=== PATIENT | female | born 1985 | race Caucasian/White ===

== ENCOUNTER 2016-11-07 11:58 | Emergency (ER) | payer BC ==
[2016-11-07 12:16] VITALS: BP 120/68
--- NOTE | 2016-11-07 12:40 | UC ---
Complaint Female HPI - HPI Summary HPI Summary: Urinary frequency, burning, low abdominal pressure since last night. No hx of UTIs, pt is 6 weeks . - History Of Current Complaint Chief Complaint: UCGU Stated Complaint: BURNING URINATION Time Seen by Provider: 11/07/16 12:22 Hx Obtained From: Patient Hx Last Menstrual Period: 6 weeks ago ?: Yes Onset/Duration: Gradual Onset, Lasting Hours Timing: Constant Severity Initially: Moderate Severity Currently: Mild Character: Burning, Cramping Aggravating Factor(s): Urination Related Hx: - 0, Para - 1 - Allergies/Home Medications Allergies/Adverse Reactions: Allergies Allergy/AdvReac Type Severity Reaction Status Date / Time No Known Allergies Allergy Verified 11/07/16 12:10 Home Medications: Home Medications Budesonide Flexhaler 90 (NF) [Pulmicort Flexhaler 90 mcg/act (NF)] 2 puff INH BID 11/07/16 [History Confirmed 11/07/16] PMH/Surg Hx/FS Hx/Imm Hx Endocrine History Of: Reports: Thyroid Disease - Hypothyroidism Respiratory History Of: Reports: Asthma - Surgical History Surgical History: None - Family History Known Family History: Positive: Hypertension - Social History Occupation: Employed Full-time Lives: With Family Alcohol Use: None Substance Use Type: None Smoking Status (MU): Never Smoked Tobacco - Immunization History Most Recent Influenza Vaccination: Not the season Review of Systems Constitutional: Negative Skin: Negative Eyes: Negative ENT: Negative Respiratory: Negative Cardiovascular: Negative Gastrointestinal: Negative Genitourinary: Dysuria, Frequency, Urgency Motor: Negative Neurovascular: Negative Musculoskeletal: Negative Neurological: Negative Psychological: Negative All Other Systems Reviewed And Are Negative: Yes Physical Exam Triage Information Reviewed: Yes Appearance: Well-Appearing, No Pain Distress, Well-Nourished Vital Signs: Initial Vital Signs Temp 98.5 F 11/07/16 12:13 Pulse 90 11/07/16 12:13 Resp 16 11/07/16 12:13 BP 120/68 11/07/16 12:13 Pulse Ox 99 11/07/16 12:13 Vital Signs Reviewed: Yes Eye Exam: Normal Eyes: Positive: Conjunctiva Clear ENT Exam: Normal ENT: Positive: Normal ENT inspection, Hearing grossly normal, Pharynx normal, TMs normal Dental Exam: Normal Neck exam: Normal Neck: Positive: Supple, Nontender, No Lymphadenopathy Respiratory Exam: Normal Respiratory: Positive: Chest non-tender, Lungs clear, Normal breath sounds, No respiratory distress, No accessory muscle use Cardiovascular Exam: Normal Cardiovascular: Positive: RRR, No Murmur Abdomen Description: Negative: CVA Tenderness (R), CVA Tenderness (L) Musculoskeletal Exam: Normal Neurological Exam: Normal Psychological Exam: Normal Skin Exam: Normal Complaint Female Dx - Course Course Of Treatment: Advised pt that thyroid needs can go up in early and she will need closer management of her levels; pt said she will call her PCP first thing tomorrow. - Differential Dx/Diagnosis Provider Diagnoses: UTI Discharge - Discharge Plan Condition: Stable Disposition: HOME Prescriptions: Cephalexin CAP* [Keflex CAP*] 500 mg PO TID #21 cap Patient Education Materials: Urinary Tract Infection in (ED) Referrals: Marion Lin NP [Primary Care Provider] - If Needed Additional Instructions: Push fluids and follow up with your provider as scheduled.
== END 2016-11-07 12:39 | disposition home or self-care (01) ==
LOC: UCEAST 11:58
DX: O23.41 Unspecified infection of urinary tract in pregnancy, first trimester (principal); Z3A.01 Less than 8 weeks gestation of pregnancy; E03.9 Hypothyroidism, unspecified
CPT/HCPCS: 81002; 87086; 99212; G0463

== ENCOUNTER 2017-07-07 07:54 | Inpatient (IN) | payer BC ==
[2017-07-07] MEDS ORDERED: Dinoprostone* 10 MG VAG.SUPP VAGINAL ONE ×2 (08:08→20:00)
[2017-07-07] MEDS ORDERED: Nalbuphine* 20 MG/ML 1 ML VIAL IM PRN (21:51)
[2017-07-07] MEDS ORDERED: Promethazine INJ(RESTRICTED)* 25 MG/ML 1 ML VIAL IM PRN (21:51)
[2017-07-08] MEDS: Levothyroxine TAB* 25 MCG TAB PO SCH (06:34)
[2017-07-08] MEDS ORDERED: Calcium Carbonate CHEW TAB* 500 MG (TUMS) PO ONE (08:13)
[2017-07-08] MEDS ORDERED: Calcium Carbonate CHEW TAB* 500 MG (TUMS) ONE (08:21)
[2017-07-08] MEDS ORDERED: Misoprostol TAB* 100 MCG VAGINAL ONE ×2 (09:34→14:28)
[2017-07-08] MEDS ORDERED: Misoprostol TAB* 100 MCG ONE (14:31)
[2017-07-08] MEDS ORDERED: Oxytocin in LR* 20 UNITS/1,000 ML BAG IVPB ONE (19:36)
[2017-07-08] MEDS ORDERED: Oxytocin in LR* 20 UNITS/1,000 ML BAG IVPB SCH (20:00)
[2017-07-08 20:08] LABS: Hematocrit 33 % (35-47); Hemoglobin 10.7 g/dl (12.0-16.0); Mean Corpuscular HGB Conc 32 g/dl (31-36); Mean Corpuscular Hemoglobin 26 pg (27-31); Mean Corpuscular Volume 80 fL (80-97); Mean Platelet Volume 10 um3 (7.4-10.4); Red Blood Count 4.13 10^6/ul (4.0-5.4); Red Cell Distribution Width 16 % (10.5-15); White Blood Count 14.3 10^3/ul (3.5-10.8)
[2017-07-08] MEDS ORDERED: fentaNYL* 50 MCG/ML 2 ML VIAL (100 MCG VIAL) IV ONE (23:00)
[2017-07-08] MEDS ORDERED: fentaNYL* 50 MCG/ML 2 ML VIAL (100 MCG VIAL) IV PRN (23:14)
[2017-07-09] MEDS ORDERED: OBEPIDURAL* 0 ML ONE (00:38)
[2017-07-09] MEDS ORDERED: Nalbuphine* 20 MG/ML 1 ML VIAL IV ONE (01:09)
[2017-07-09] MEDS ORDERED: Promethazine INJ(RESTRICTED)* 25 MG/ML 1 ML VIAL IV ONE (01:09)
[2017-07-09] MEDS ORDERED: Nalbuphine* 20 MG/ML 1 ML VIAL ONE (01:13)
[2017-07-09] MEDS ORDERED: Promethazine INJ(RESTRICTED)* 25 MG/ML 1 ML VIAL ONE (01:13)
[2017-07-09] MEDS: Levothyroxine TAB* 25 MCG TAB PO SCH (07:04)
[2017-07-09] MEDS ORDERED: Oxytocin in LR* 20 UNITS/1,000 ML BAG IVPB SCH ×2 (09:00→22:00)
[2017-07-09] MEDS ORDERED: OBEPIDURAL* 250 ML ONE (10:26)
[2017-07-09] MEDS ORDERED: fentaNYL* 50 MCG/ML 2 ML VIAL (100 MCG VIAL) ONE ×2 (10:26→21:13)
[2017-07-09] MEDS ORDERED: Sodium Citrate/Citric Acid* 15 ML UDC PO PRN (11:30)
[2017-07-09] MEDS ORDERED: Famotidine TAB* 20 MG PO PRN (11:30)
[2017-07-09] MEDS ORDERED: Phenylephrine IV* 40 MCG/ML 10 ML SYRINGE IV PUSH PRN ×2 (11:30)
[2017-07-09] MEDS ORDERED: OBEPIDURAL* 250 ML EPIDURAL SCH (12:00)
[2017-07-09] MEDS ORDERED: ceFOXitin 2 GM IVPREMIX* 2 GM/50 ML BAG ONE (19:41)
[2017-07-09] MEDS ORDERED: Sodium Citrate/Citric Acid* 15 ML UDC ONE (19:41)
[2017-07-09] MEDS ORDERED: Morphine PF AMP (0.5MG/ML)* 5 MG/10 ML AMP ONE (19:53)
[2017-07-09] MEDS ORDERED: OXYTOCIN* 10 UNITS/ML 1 ML VIAL ONE (19:53)
[2017-07-09] MEDS ORDERED: Phenylephrine IV* 40 MCG/ML 10 ML SYRINGE ONE (19:53)
[2017-07-09] MEDS ORDERED: Midazolam* 1 MG/ML 2 ML VIAL (2 MG) ONE (21:00)
[2017-07-09] MEDS ORDERED: fentaNYL* 50 MCG/ML 2 ML VIAL (100 MCG VIAL) IV PRN (21:18)
[2017-07-09] MEDS ORDERED: Ondansetron INJ* 2 MG/ML VIAL IV PRN ×2 (21:18→21:20)
[2017-07-09] MEDS ORDERED: oxyCODONE/Acetamin 5/325 MG* TAB PO PRN ×2 (21:20)
[2017-07-09] MEDS ORDERED: diPHENhydraMINE IV* 50 MG/ML 1 ml VIAL (BENADRYL) IV PRN (21:20)
[2017-07-09] MEDS ORDERED: Naloxone* 0.4 MG/ML 1 ML VIAL IV PRN (21:20)
[2017-07-09] MEDS ORDERED: Dibucaine 1% 28.35 GM TUBE PR PRN (21:56)
[2017-07-09] MEDS ORDERED: Acetaminophen TAB* 325 MG PO PRN (21:56)
[2017-07-09] MEDS ORDERED: Witch Hazel PAD* JAR TOPICAL PRN (21:56)
[2017-07-09] MEDS ORDERED: Glycerin ADULT SUPP PR PRN (21:56)
[2017-07-09] MEDS: Ketorolac INJ* 30 MG/ML 1 ML VIAL IV PRN (22:23)
--- NOTE | 2017-07-10 05:40 | OP ---
OPERATIVE REPORT: DATE OF OPERATION: DATE OF : [birth year] SURGEON: Destiney Brooks MD ACCOUNTING MANAGER CONTROLLER: Rachell Swift CNM ACCOUNTANT: Dr. Salinas. ANESTHESIOLOGIST: Dr. Bowers. ANESTHESIA: Spinal anesthesia x2. PRE-OP DIAGNOSIS: Intrauterine 41-5/7 weeks, arrest of dilation. POST-OP DIAGNOSIS: Intrauterine 41-5/7 weeks, arrest of dilation, delivered. OPERATIVE PROCEDURE: Primary cesarian section. ESTIMATED BLOOD LOSS: 800 cc. FLUIDS: 2300 cc of crystalloid. URINE OUTPUT: 100 cc of concentrated yellow urine. FINDINGS: Revealed a vertex male with Apgars 1 at 9 minutes and 9 at 5 minutes. Weight was 8 pounds 1 ounce. No nuchal cord. No meconium. Placenta was manually extracted. Three-vessel cor d intact. Uterus has normal uterine cavity without evidence of retained membranes or placental tiss ue. Normal-appearing tubes and ovaries bilaterally. COMPLICATIONS: None apparent with surgery. DISPOSITION: Stable to recovery room. PREOPERATIVE FINDINGS: The patient underwent spinal anesthesia without effect, had a second spinal anesthesia. After a second spinal anesthesia there was some difficulty with the patient breathing s pontaneously on her own, so she required intermittent assistance with ventilation. After appropriat e time of prep dry was allowed which was 3 minutes, the procedure rapidly proceeded with universal p rotocol and delivery of the baby. DESCRIPTION OF PROCEDURE: The patient was prepped and draped in the sterile standard fashion. An i ncision was made 2 fingerbreadths above the pubic symphysis after universal protocol was performed. The incision was carried to the fascia, the fascia was scored in the midline, extended laterally an d superiorly and the fascia was sharply from the rectus muscle superiorly and inferiorly a nd the peritoneum was then entered bluntly. The peritoneal incision was extended bluntly. A bladde r blade was inserted. The lower uterine segment was tented up with Allis. Incision was made with s calpel and this incision was extended laterally superiorly using bandage scissors. The infant was f ound to be wedged in the MELISSA position. The head was disengaged and then anterior and posterior shou lder delivered. The baby was noted to have poor tone with delivery, but did have a slight cry at th e OR table. After milking the cord and clamping the cord the baby was handed off to the awaiting ne onatologist. Appropriate cord blood was obtained at that point. The placenta was then manually ext racted. The uterus was exteriorized, wrapped in warm moist sponge and the uterine cavity was explor ed, to be free of any membranes. The uterine incision itself was reapproximated in 2 layers with, f irst layer running locked and the second layer running imbricated. The uterus was returned intraabdo minally and the colic gutters were lavaged. Hemostasis was assured at the hysterotomy site. The per itoneum was then reapproximated using 3-0 Vicryl in a running fashion. The subfascial area was assu red to be hemostatic and the fascia itself was reapproximated using 0 Vicryl x2. The subcu was lava ged, hemostasis assured with Bovie coagulation and the skin was then reapproximated using a 4-0 [place] cryl in a subcuticular fashion. Mastisol and then Steri were applied. All sponge, needle, instrume nt, and blade counts were correct throughout the case and the patient tolerated the procedure well. The patient after reapproximation of the hysterotomy site and upon closure of the parietal peritone was able to breathe on her own and able to engage in conversation and tolerated the procedure mitul thomas [id number]/[facility] #: [id number]
[2017-07-10] MEDS: Levothyroxine TAB* 25 MCG TAB PO SCH (06:27)
[2017-07-10 07:28] LABS: Hematocrit 26 % (35-47); Hemoglobin 8.3 g/dl (12.0-16.0); Mean Corpuscular HGB Conc 32 g/dl (31-36); Mean Corpuscular Hemoglobin 26 pg (27-31); Mean Corpuscular Volume 80 fL (80-97); Mean Platelet Volume 10 um3 (7.4-10.4); Red Blood Count 3.21 10^6/ul (4.0-5.4); Red Cell Distribution Width 16 % (10.5-15); White Blood Count 21.2 10^3/ul (3.5-10.8)
[2017-07-10] MEDS: Ferrous Gluconate TAB* 324 MG TAB PO SCH ×2 (09:05→20:14)
[2017-07-10] MEDS: Docusate CAP* 100 MG PO SCH ×3 (09:05→20:14)
[2017-07-10] MEDS: Simethicone TAB* 80 MG TAB.CHEW PO SCH ×4 (09:08→20:14)
[2017-07-10] MEDS: Ketorolac INJ* 30 MG/ML 1 ML VIAL IV PRN ×2 (09:18→15:15)
[2017-07-10] MEDS ORDERED: oxyCODONE/Acetamin 5/325 MG* TAB PO PRN ×2 (12:30)
[2017-07-10] MEDS: Ibuprofen TAB* 600 MG PO PRN (22:33)
[2017-07-11] MEDS: Levothyroxine TAB* 25 MCG TAB PO SCH (06:42)
[2017-07-11] MEDS: Ibuprofen TAB* 600 MG PO PRN ×3 (06:42→19:19)
[2017-07-11] MEDS: Ferrous Gluconate TAB* 324 MG TAB PO SCH ×2 (09:43→21:30)
[2017-07-11] MEDS: Docusate CAP* 100 MG PO SCH ×3 (09:43→21:30)
[2017-07-11] MEDS: Simethicone TAB* 80 MG TAB.CHEW PO SCH ×4 (09:43→21:30)
[2017-07-12] MEDS: Ibuprofen TAB* 600 MG PO PRN ×2 (04:06→09:51)
[2017-07-12] MEDS: Levothyroxine TAB* 25 MCG TAB PO SCH (06:32)
--- NOTE | 2017-07-12 07:22 | PTEDU ---
Patient Name: ISRAEL COLLAZO ISRAEL COLLAZO selected video: Never Ever Shake a Baby to view on 07/12/2017 at 7:20:06 AM [id number]
--- NOTE | 2017-07-12 08:05 | PTEDU ---
Patient Name: ISRAEL COLLAZO ISRAEL COLLAZO selected video: Never Ever Shake a Baby to [facility]12[facility]2017 [facility] 8:04:12 [id number]
[2017-07-12 08:37] VITALS: BP 120/70
[2017-07-12] MEDS: Simethicone TAB* 80 MG TAB.CHEW PO SCH (08:59)
[2017-07-12] MEDS: Docusate CAP* 100 MG PO SCH (08:59)
[2017-07-12] MEDS: Ferrous Gluconate TAB* 324 MG TAB PO SCH (08:59)
== END 2017-07-12 11:06 | disposition home or self-care (01) | DRG 540 ==
LOC: MCHOBOUT 07:54 → MCHOB 08:21
PROVIDERS: ADMIT Midwife; ATTEND Obstetrics & Gynecology
PROC: 10D00Z1 Extraction of Products of Conception, Low, Open Approach (ICD-10-PCS; 2017-07-09)
PROC: 3E0P7GC Introduction of Other Therapeutic Substance into Female Reproductive, Via Natural or Artificial Opening (ICD-10-PCS; 2017-07-09)
PROC: 10H07YZ Insertion of Other Device into Products of Conception, Via Natural or Artificial Opening (ICD-10-PCS; 2017-07-09)
PROC: 4A1H74Z Monitoring of Products of Conception, Cardiac Electrical Activity, Via Natural or Artificial Opening (ICD-10-PCS; 2017-07-09)
PROC: 3E033VJ Introduction of Other Hormone into Peripheral Vein, Percutaneous Approach (ICD-10-PCS; principal; 2017-07-09 20:13)
DX: O62.1 Secondary uterine inertia (principal); E03.9 Hypothyroidism, unspecified; O48.0 Post-term pregnancy; O99.284 Endocrine, nutritional and metabolic diseases complicating childbirth; Z3A.40 40 weeks gestation of pregnancy; Z37.0 Single live birth; O90.81 Anemia of the puerperium
CPT/HCPCS: 36415; 59200; 85025; 86850; 86900; 86901; A9270-GY; J0694; J1885; J2250; J2300; J2550; J2590; J3010; S0191

== ENCOUNTER 2017-10-28 08:40 | Emergency (ER) | payer BC ==
[2017-10-28 08:48] VITALS: BP 107/72
--- NOTE | 2017-10-28 09:11 | UC ---
Throat Pain/Nasal Yves HPI - HPI Summary HPI Summary: 32 yo WF c/o worsening sinus pain associated with foul smelling green d/c x 2 weeks. Started with URI sx and sinus inflammation but now d/c and pain is more remarkable. Denies f/c/URI sx - History of Current Complaint Chief Complaint: UCRespiratory Stated Complaint: SINUS PRESSURE Time Seen by Provider: 10/28/17 08:56 Hx Obtained From: Patient Hx Last Menstrual Period: 10/16/17 Onset/Duration: Gradual Onset, Lasting Weeks Severity: Severe Cough: None - Epiglottits Risk Factors Epiglottis Risk Factors: Negative - Allergies/Home Medications Allergies/Adverse Reactions: Allergies Allergy/AdvReac Type Severity Reaction Status Date / Time No Known Allergies Allergy Verified 10/28/17 08:44 PMH/Surg Hx/FS Hx/Imm Hx Previously Healthy: Yes - Surgical History Surgical History: Yes Surgery Procedure, Year, and Place: c/sec - Family History Known Family History: Positive: Hypertension - Social History Alcohol Use: None Substance Use Type: None Smoking Status (MU): Never Smoked Tobacco - Immunization History Most Recent Influenza Vaccination: [id number] season Most Recent Pneumonia Vaccination: unknown Review of Systems Constitutional: Negative Skin: Negative Eyes: Negative ENT: Sinus Pain/Tenderness, Other - foul smelling green nasal d/c Respiratory: Negative Cardiovascular: Negative Gastrointestinal: Negative Genitourinary: Negative Motor: Negative Neurovascular: Negative Musculoskeletal: Negative Neurological: Negative Psychological: Negative All Other Systems Reviewed And Are Negative: Yes Physical Exam Triage Information Reviewed: Yes Appearance: No Pain Distress Vital Signs: Initial Vital Signs Temp 36.1 C 10/28/17 08:46 Pulse 69 10/28/17 08:46 Resp 16 10/28/17 08:46 BP 107/72 10/28/17 08:46 Pulse Ox 100 10/28/17 08:46 Eye Exam: Normal ENT Exam: Normal ENT: Positive: Hearing grossly normal, Pharynx normal, Nasal drainage - green, TMs normal, Uvula midline, Other - swollen and erythematous turbinates. Negative: Tonsillar swelling, Tonsillar exudate Dental Exam: Normal Neck exam: Normal Neck: Positive: 1 Respiratory Exam: Normal Cardiovascular Exam: Normal Abdominal Exam: Normal Musculoskeletal Exam: Normal Neurological Exam: Normal Psychological Exam: Normal Skin Exam: Normal Throat Pain/Nasal Course/Dx - Differential Dx/Diagnosis Provider Diagnoses: acute sinus infection Discharge - Discharge Plan Condition: Stable Disposition: HOME Prescriptions: Amoxicillin PO (*) [Amoxicillin 875 MG (*)] 875 mg PO BID 7 Days #14 tab Patient Education Materials: Sinusitis (ED) Referrals: Maroin Lin NP [Primary Care Provider] - Additional Instructions: as tolerated
== END 2017-10-28 09:10 | disposition home or self-care (01) ==
LOC: UCEAST 08:40
DX: J01.90 Acute sinusitis, unspecified (principal)
CPT/HCPCS: 99212; G0463

== ENCOUNTER 2018-07-23 17:03 | Emergency (ER) | payer BC ==
[2018-07-23 17:20] VITALS: BP 117/79
[2018-07-23] MEDS ORDERED: Amoxicillin/Clavulanate TAB* 875 MG PO ONE (17:30)
--- NOTE | 2018-07-23 17:31 | UC ---
Throat Pain/Nasal Yves HPI - HPI Summary HPI Summary: 9 days of sinus pain and congestion that has worsed the past 3 days - History of Current Complaint Chief Complaint: UCGeneralIllness Stated Complaint: SINUS COMPLAINT Time Seen by Provider: 07/23/18 17:22 Hx Obtained From: Patient Hx Last Menstrual Period: 07/18/18 ?: No Onset/Duration: Gradual Onset, Lasting Days, Still Present Pain Intensity: 1 Pain Scale Used: 0-10 Numeric Cough: None Associated Signs & Symptoms: Positive: Sinus Discomfort - Allergies/Home Medications Allergies/Adverse Reactions: Allergies Allergy/AdvReac Type Severity Reaction Status Date / Time No Known Allergies Allergy Verified 07/23/18 17:20 PMH/Surg Hx/FS Hx/Imm Hx Previously Healthy: Yes - Surgical History Surgical History: Yes Surgery Procedure, Year, and Place: c/sec - Family History Known Family History: Positive: Hypertension - Social History Occupation: Employed Full-time - teacher Lives: With Family Alcohol Use: Occasionally Substance Use Type: None Smoking Status (MU): Never Smoked Tobacco - Immunization History Most Recent Influenza Vaccination: [id number] season Most Recent Pneumonia Vaccination: unknown Review of Systems Constitutional: Negative Skin: Negative Eyes: Negative ENT: Negative, Sinus Congestion, Sinus Pain/Tenderness Respiratory: Negative Cardiovascular: Negative Gastrointestinal: Negative Genitourinary: Negative Motor: Negative Neurovascular: Negative Musculoskeletal: Negative Neurological: Negative Psychological: Negative Is Patient Immunocompromised?: No All Other Systems Reviewed And Are Negative: Yes Physical Exam Triage Information Reviewed: Yes Appearance: Well-Appearing, No Pain Distress, Well-Nourished Vital Signs: Initial Vital Signs Temp 97.3 F 07/23/18 17:15 Pulse 84 07/23/18 17:15 Resp 18 07/23/18 17:15 BP 117/79 07/23/18 17:15 Pulse Ox 98 07/23/18 17:15 Vital Signs Reviewed: Yes Eye Exam: Normal Eyes: Positive: Conjunctiva Clear ENT Exam: Normal ENT: Positive: Normal ENT inspection, Hearing grossly normal, Pharynx normal, Nasal congestion, TMs normal, Sinus tenderness, Uvula midline. Negative: Tonsillar swelling, Trismus, Muffled voice, Hoarse voice, Dental tenderness Dental Exam: Normal Neck exam: Normal Neck: Positive: Supple, Nontender, No Lymphadenopathy Respiratory Exam: Normal Respiratory: Positive: Chest non-tender, Lungs clear, Normal breath sounds, No respiratory distress, No accessory muscle use Cardiovascular Exam: Normal Cardiovascular: Positive: RRR, No Murmur, Pulses Normal, Brisk Capillary Refill Musculoskeletal Exam: Normal Musculoskeletal: Positive: Strength Intact, ROM Intact, No Edema Neurological Exam: Normal Neurological: Positive: Alert, Muscle Tone Normal Psychological Exam: Normal Skin Exam: Normal Throat Pain/Nasal Course/Dx - Course Assessment/Plan: Augmentin, flonase, tylenol ibuprofen increase fluids follow with pcp prn - Differential Dx/Diagnosis Provider Diagnoses: acute rhinosinusitis Discharge - Sign-Out/Discharge Documenting (check all that apply): Patient Departure All imaging exams completed and their final reports reviewed: No Studies - Discharge Plan Condition: Stable Disposition: HOME Prescriptions: Amoxicillin/Clavulanate TAB* [Augmentin TAB 875*] 875 mg PO BID #19 tab Fluticasone NASAL SPRAY 50MCG* [Flonase NASAL SPRAY 50MCG*] 2 spray BOTH NARES DAILY #1 btl Patient Education Materials: Rhinosinusitis (ED) Referrals: Marion Lin NP [Primary Care Provider] - If Needed - Billing Disposition and Condition Condition: STABLE Disposition: Home
== END 2018-07-23 17:55 | disposition home or self-care (01) ==
LOC: UCEAST 17:03
DX: J01.90 Acute sinusitis, unspecified (principal)
CPT/HCPCS: 99212; A9270-GY; G0463

== ENCOUNTER 2021-03-20 08:53 | Inpatient (IN) ==
[~2021-03-20 08:53] MED LIST: Buffered Lidocaine 1% SYRIN 1 ml INTRADERM ONE; Lactated Ringers 1000 ml BAG 1,000 ML IV SCH; Sodium Citrate/Citric Acid LIQ 15 ML UDC PO ONE
[2021-03-20] MEDS ORDERED: Buffered Lidocaine 1% SYRIN 1 ml INTRADERM ONE (09:41)
[2021-03-20] MEDS ORDERED: Lactated Ringers 1000 ml BAG 1,000 ML IV ONE (09:41)
[2021-03-20] MEDS ORDERED: ceFOXitin 2 GM IVPREMIX 2 GM/50 ML BAG IVPB ONE (10:12)
[2021-03-20] MEDS ORDERED: Morphine PF AMP (0.5MG/ML) 5 MG/10 ML AMP ONE (10:37)
[2021-03-20] MEDS ORDERED: Ketamine HCL 50 mg/ml 10 ml VIAL (500 MG) ONE (10:47)
[2021-03-20 10:56] LABS: Urine Benzodiazepine Screen None Detected (None Detect); Urine Cannabinoids Screen None Detected (None Detect); Urine Opiates Screen None Detected (None Detect)
[2021-03-20] MEDS ORDERED: Naloxone 0.4 mg VIAL 0.4 mg/ml 1 ml VIAL IV PRN ×2 (10:57→12:09)
[2021-03-20] MEDS ORDERED: Oxytocin 10 UNITS/ML 1 ML VIAL ONE ×2 (11:42→11:55)
[2021-03-20] MEDS ORDERED: Ondansetron 4 mg VIAL 2 MG/ML 2 ml VIAL ONE (11:42)
[2021-03-20] MEDS ORDERED: Ondansetron 4 mg VIAL 2 MG/ML 2 ml VIAL IV PRN (12:09)
[2021-03-20] MEDS ORDERED: oxyCODONE/Acetamin 5/325 mg TAB PO PRN ×2 (12:09)
[2021-03-20] MEDS ORDERED: diPHENhydraMINE IV 50 MG/ML 1 ml VIAL (BENADRYL) IV PRN (12:09)
[2021-03-20] MEDS ORDERED: Oxytocin in LR 20 UNITS/1,000 ML BAG IVPB ONE ×3 (12:59→20:32)
[2021-03-20] MEDS ORDERED: Glycerin ADULT 2.4 gm SUPP PR PRN (13:01)
[2021-03-20] MEDS ORDERED: Dibucaine 1% OINT 28.35 GM TUBE PR PRN (13:01)
[2021-03-20] MEDS ORDERED: Witch Hazel PAD JAR TOPICAL PRN (13:01)
[2021-03-20] MEDS: Lactated Ringers 1000 ml BAG 1,000 ML IV SCH ×2 (13:26→17:53)
[2021-03-20] MEDS ORDERED: Lactated Ringers 1000 ml BAG 1,000 ML IV SCH (14:00)
[2021-03-20] MEDS ORDERED: Oxytocin in LR 20 UNITS/1,000 ML BAG IVPB SCH ×2 (14:00→21:00)
[2021-03-20 14:19] LABS: Urine Appearance Clear; Urine Bilirubin Negative (Negative); Urine Blood Negative (Negative); Urine Color Straw; Urine Glucose Negative (Negative); Urine Ketones Trace (Negative); Urine Nitrite Negative (Negative); Urine Protein Negative (Negative); Urine Specific Gravity 1.004 (1.002-1.030); Urine Urobilinogen Negative (Negative)
[2021-03-20] MEDS ORDERED: fentaNYL 100 mcg/2 ml 50 MCG/ML VIAL ONE ×2 (19:55→20:10)
[2021-03-20 20:22] LABS: ABS Eosinophils 0.1 10^3/ul (0-0.6); ABS Lymphocytes 1.7 10^3/ul (1.0-4.8); ABS Monocytes 0.7 10^3/ul (0-0.8); ABS Neutrophils 9.8 10^3/ul (1.5-7.7); Eosinophil % 0.5 %; Hematocrit 25 % (35-47); Hemoglobin 7.9 g/dL (12.0-16.0); Mean Corpuscular HGB Conc 32 g/dL (31-36); Mean Corpuscular Hemoglobin 26 pg (27-31); Mean Corpuscular Volume 82 fL (80-97); Platelet Count 161 10^3/uL (150-450); Red Blood Count 3.04 10^6 /uL (3.70-4.87); Red Cell Distribution Width 17 % (10-15); White Blood Count 12.3 10^3/uL (3.5-10.8)
[2021-03-20] MEDS ORDERED: Methylergonovine 0.2 mg AMPULE 1 ml AMP ONE (20:36)
[2021-03-20] MEDS ORDERED: Methylergonovine 0.2 mg AMPULE 1 ml AMP IM ONE (20:39)
[2021-03-20] MEDS ORDERED: ceFAZolin 2 GM PREMIX 2 GM/50 ML BAG IVPB ONE (20:39)
[2021-03-20 21:20] LABS: Activated Partial Thrombo Time 25.2 seconds (26.0-38.0); INR 1.01 (0.82-1.09)
[2021-03-20 21:32] LABS: Fibrinogen 377.4 mg/dL (110.8-404.3)
[2021-03-20 21:47] LABS: Platelet Count 159 10^3/ul (150-450)
[2021-03-20 21:54] LABS: Schistocytes ABSENT
[2021-03-21 09:01] LABS: ABS Lymphocytes 1.4 10^3/ul (1.0-4.8); ABS Monocytes 0.6 10^3/ul (0-0.8); ABS Neutrophils 8.3 10^3/ul (1.5-7.7); Eosinophil % 0.3 %; Hematocrit 26 % (35-47); Hemoglobin 8.8 g/dL (12.0-16.0); Lymphocyte % 13.4 %; Mean Corpuscular HGB Conc 33 g/dL (31-36); Mean Corpuscular Hemoglobin 27 pg (27-31); Mean Corpuscular Volume 83 fL (80-97); Mean Platelet Volume 9.7 fL (7.4-10.4); Platelet Count 150 10^3/uL (150-450); Red Blood Count 3.19 10^6 /uL (3.70-4.87); Red Cell Distribution Width 17 % (10-15); White Blood Count 10.4 10^3/uL (3.5-10.8)
[2021-03-22] MEDS ORDERED: Mometasone 220 MCG MDI INH SCH (18:00)
[2021-03-23] MEDS ORDERED: Calcium Carb (TUMS) 500 mg CHEW TAB ONE (03:07)
[2021-03-23] MEDS ORDERED: Calcium Carb (TUMS) 500 mg CHEW TAB PO PRN (04:19)
[2021-03-23 08:03] VITALS: BP 112/82
== END 2021-03-23 16:26 | disposition home or self-care (01) | DRG 540 ==
LOC: MCHOB 08:53
PROVIDERS: ADMIT Obstetrics & Gynecology; ATTEND Obstetrics & Gynecology